=== PATIENT | female | born 1950 | race Caucasian/White ===

== ENCOUNTER → 2017-09-26 | Outpatient (CLI) | payer MEDICARE ==
[~2017-09-26] MED LIST: ALPR0.5T6 PO; CANA100T PO; OMEP-110 PO; OXYC5CAP2 PO; PARO30TA3 PO; PRAV40TA2 PO; SAXA1TBM2 PO; ZOLP10TA5 PO
== END | disposition home or self-care (01) ==
LOC: RAD 14:13
PROVIDERS: ATTEND Nurse Practitioner
DX: M51.36 Other intervertebral disc degeneration, lumbar region (principal); R10.2 Pelvic and perineal pain
CPT/HCPCS: 72100; 72170